=== PATIENT | male | born 1995 | race Caucasian/White ===

== ENCOUNTER 2018-01-30 10:45 | Emergency (ER) | payer SELFPAY ==
[2018-01-30 11:05] VITALS: TEMP 97.8; O2SAT 98
--- NOTE | 2018-01-30 11:18 | ED.PDOC ---
History of Present Illness - General Chief Complaint: Head Injury Stated Complaint: crowbar to left forehead Time Seen by Provider: 01/30/18 11:05 Source: patient, family Exam Limitations: no limitations - History of Present Illness Initial Comments: PT PRESENTS AFTER ACCIDENTALLY HITTING HIMSELF IN THE HEAD WITH A CROWBAR. PT DENIES LOC, NAUSEA OR VOMITING. PT REPORTS HEADACHE LOCALIZED TO THE AREA OF TRAUMA. SIGNIFICANT OTHER NOTICED THAT PATIENT HAD UNEQUAL PUPILS AND STATES HIS SPEECH WAS SLOWED WHEN HE FIRST ARRIVED HOME. Occurred: this morning Severity: moderate Head Injury Location: frontal Method of Injury: direct blow Loss of Consciousness: no loss of consciousness Associated Symptoms: headaches Allergies/Adverse Reactions: Allergies NO KNOWN ALLERGY Allergy (Verified 01/30/18 11:07) Home Medications: Ambulatory Orders Ibuprofen 800 mg PO Q8HR PRN #30 tab 01/30/18 Review of Systems - Review of Systems Constitutional: Denies: chills, fever EENTM: Denies: blurred vision, double vision Respiratory: Denies: cough, short of breath Cardiology: Denies: palpitations, syncope Gastrointestinal/Abdominal: Denies: diarrhea, nausea, vomiting Genitourinary: Denies: dysuria, frequency Musculoskeletal: Denies: joint pain, joint swelling Skin: Denies: dryness, lesions Neurological: States: headache. Denies: numbness, paresthesia Endocrine: States: no symptoms reported Hematologic/Lymphatic: States: no symptoms reported Past Medical History (General) - Patient Medical History Hx Asthma: Yes Hx of COPD: No Hx Cardiac Disorders: No Hx Congestive Heart Failure: No Hx Hypertension: No Surgical History: other - Social History Hx Tobacco Use: No - marijuanna smoker Family Medical History - Family History Mother Family History: No Known Physical Exam - Physical Exam General Appearance: Alert, No apparent distress, Well Developed, Well Hydrated Head Injury: ecchymosis - LOCATED OVER THE LEFT BROW, swelling - MILD, tenderness Eye Exam: bilateral normal ENT Exam: hearing grossly normal, no evidence of ENT injury Neck Exam: non-tender, full range of motion, normal alignment, normal inspection Back Exam: normal inspection, no vertebral tenderness Mental Status: alert, oriented x [address] Exam: normal hearing, normal speech, PERRL Motor/Sensory: no motor deficit, no sensory deficit Skin Exam: normal color, warm/dry - [place] Coma Score Best Eye Response (Klaus): (4) open spontaneously Best Verbal Response ([place]): (5) oriented Best Motor Response ([place]): (6) obeys commands [place] Total: 15 Progress - EKG/XRAY/CT CT Ordered: Yes - NORMAL HEAD AND CSPINE CT Departure - Departure Clinical Impression: Concussion without loss of consciousness, Hematoma Time of Disposition: 11:49 Disposition: Discharge to Home or Self Care Condition: Good Departure Forms: ED Discharge - Pt. Copy, Patient Portal Self Enrollment Instructions: DI for Concussion, DI for Closed Head Injury Diet: resume usual diet Referrals: [facility] [Provider Group] - 1-5 Days Prescriptions: Ibuprofen 800 mg PO Q8HR PRN #30 tab PRN Reason: Pain Home Medications: Ambulatory Orders Ibuprofen 800 mg PO Q8HR PRN #30 tab 01/30/18
--- NOTE | 2018-01-30 11:33 | CT ---
EXAM DESCRIPTION: Cervical Spine: Computed Tomography. CLINICAL HISTORY: HEAD INJURY . Trauma. COMPARISON: CT head noncontrast on the same visit. TECHNIQUE: Spiral, axial 2.5 mm scans through the cervical spine without contrast. Coronal and sagittal 2.0 mm Reconstructions. Total Exam DLP: 397.58 mGy-cm. This exam was performed according to our departmental dose-optimization program which includes automated exposure control, adjustment of the mA and/or kV according to patient size and/or use of iterative reconstruction technique; to reduce radiation dose to as low as reasonably achievable (ALARA). FINDINGS: Atlantoaxial joint is intact with no evidence of fracture. Atlantooccipital facets and the C1-2 facets appear anatomic with no bony abnormality. The spine is straightened. Disc spaces are maintained. No canal or neural foraminal stenosis. No vertebral body compression type fractures. No spondylolisthesis. Posterior elements are intact with no fractures. Facets are normal with no perching or locking. No abnormal radiodense objects in the soft tissues neural foramina are moderate canal. IMPRESSION: 1. No vertebral body fractures or posterior element fractures. Lack of lordosis may be due to muscle spasm. Otherwise anatomic alignment. Canal and neural foramina are patent. Facets are negative. Electronically signed by: Ulysses Mark MD 01/30/2018 11:31 AM CDT
--- NOTE | 2018-01-30 11:39 | CT ---
EXAM DESCRIPTION: Head: Computed Tomography. CLINICAL HISTORY: HEAD INJURY COMPARISON: CT scan of the cervical spine without contrast. TECHNIQUE: Non-helical axial scans through the skull and brain, at 2.5 mm intervals, non-contrast. Coronal and sagittal 2.0 mm reconstructions. Total Exam DLP: 752.48 mGy-cm. This exam was performed according to our departmental dose-optimization program which includes automated exposure control, adjustment of the mA and/or kV according to patient size and/or use of iterative reconstruction technique; to reduce radiation dose to as low as reasonably achievable (ALARA). FINDINGS: No hemorrhage, no mass-effect, and no midline shift. Normal french-white matter differentiation. No abnormal radiodense material in the brain parenchyma. Vascular calcifications not present; physiologic calcifications in the pineal gland and choroid plexus. No effacement or displacement of the ventricles, CSF spaces, or subdural spaces. No extra axial fluid collection or hemorrhage. No gross abnormalities of the bony calvarium. Included paranasal sinuses and mastoid air cells are well - aerated. Underdeveloped right frontal sinus cavities.. IMPRESSION: 1. No hemorrhage, no mass effect, no midline shift. Normal CT scan of the head without IV contrast. 2. CT scans are insensitive for detecting small CVAs in the first 24 hours after onset. Evaluation of the brain stem is also limited. If symptoms persist, consider MRI scan of the brain with diffusion imaging. Electronically signed by: Ulysses Mark MD 01/30/2018 11:37 AM CDT
[2018-01-30] MEDS ORDERED: IBUPROFEN 200 MG TAB PO ONE (11:50)
[2018-01-30 12:14] VITALS: BP 105/64
== END 2018-01-30 12:14 | disposition home or self-care (01) ==
LOC: ER 10:45
DX: S06.0X0A Concussion without loss of consciousness, initial encounter (principal); S00.83XA Contusion of other part of head, initial encounter; W22.8XXA Striking against or struck by other objects, initial encounter; Y93.9 Activity, unspecified; Y92.9 Unspecified place or not applicable

== ENCOUNTER 2018-12-25 17:10 | Emergency (ER) | payer SELFPAY ==
--- NOTE | 2018-12-25 18:26 | RAD ---
EXAM DESCRIPTION: Fingers,Right, 3 views CLINICAL HISTORY: 23 years Male, r index finger in door, cut over PIP COMPARISON: None. FINDINGS: No fracture or dislocation. Second digit prominent soft tissues. Electronically signed by: Noé Miller MD 12/25/2018 6:22 PM [facility]
[2018-12-25] MEDS ORDERED: LIDOCAINE 1% 10 ML VIAL INJ ONE (18:58)
[2018-12-25] MEDS ORDERED: SULFA/TRIMETH 800/160 (DS) TAB 1 EA TAB PO ONE (19:14)
[2018-12-25] MEDS ORDERED: TETANUS,DIPHTHERIA,PERTUSSIS 1 EA SYG IM ONE (19:14)
--- NOTE | 2018-12-25 19:17 | ED.PDOC ---
History of Present Illness - General Chief Complaint: Laceration Stated Complaint: R index finger laceration Time Seen by Provider: 12/25/18 17:51 Source: patient Exam Limitations: no limitations - History of Present Illness Initial Comments: the patient is a 23-year-old male presenting to the emergency room after having slammed his right index finger in a car door. He has a three-quarter inch laceration over the dorsal aspect of the proximal interphalangeal joint. Sensation and movement as well as blood supply appeared to be preserved. No other injuries. This happened just prior to arrival. The wound is not clean. Risks and benefits of repair were explained to patient agrees to proceed. Wound is clean with hydrogen peroxide and irrigated with 250 cc of sterile saline. Lidocaine without epinephrine 5 cc were used for local anesthetic. 6 simple sutures of 3-0 Ethilon were used to reapproximate. Band-Aid and triple antibiotic ointment as well as splint were placed. Patient tolerated this well. Estimated blood loss less than 3 cc. Timing/Duration: momentarily Severity: moderate Improving Factors: nothing Worsening Factors: nothing Associated Symptoms: denies symptoms Allergies/Adverse Reactions: Allergies NO KNOWN ALLERGY Allergy (Verified 01/30/18 11:07) Home Medications: Ambulatory Orders Albuterol Inhaler [Ventolin Hfa Inhaler] 2 puff INH Q4H PRN 12/25/18 Sulfa/Trimeth 800/160 (Ds) Tab [Bactrim DS Tab] 1 ea PO BID #10 tab 12/25/18 Review of Systems - Review of Systems Constitutional: States: no symptoms reported EENTM: States: no symptoms reported Respiratory: States: no symptoms reported Cardiology: States: no symptoms reported Gastrointestinal/Abdominal: States: no symptoms reported Genitourinary: States: no symptoms reported Musculoskeletal: States: see HPI Skin: States: see HPI Neurological: States: no symptoms reported Endocrine: States: no symptoms reported All other Systems: No Change from Baseline Past Medical History (General) - Patient Medical History Hx Stroke: No Hx Asthma: Yes Hx of COPD: No Hx Cardiac Disorders: No Hx Congestive Heart Failure: No Hx Hypertension: No Hx Diabetes: No - Vaccination History Hx Influenza Vaccination: No Hx Pneumococcal Vaccination: No - Social History Hx Tobacco Use: No Hx Alcohol Use: No Hx Substance Use: Yes - Marijuana Family Medical History - Family History Mother Family History: No Known Living Status: Hx Family Cancer: Yes - Ovarian w/METs, gliobastoma Physical Exam - Physical Exam General Appearance: Alert, Comfortable, No apparent distress Eye Exam: bilateral normal Ears, Nose, Throat: hearing grossly normal Neck: full range of motion Respiratory: no respiratory distress, no accessory muscle use Cardiovascular/Chest: normal peripheral pulses, no edema Peripheral Pulses: radial,right: 2+, radial,left: 2+ Rectal Exam: deferred Extremity: normal range of motion, no pedal edema, no calf tenderness, normal capillary refill, other - see history of present illness 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 X-ray shows no evidence of fracture or dislocation. He appears to be neurovascularly intact and the joint appears to be preserved. Mechanical function appears to be preserved. 6 simple sutures of 3-0 Ethilon were used for reapproximation. He was given a splint to use to keep from bending the joint. Sutures need to come out and 12 days to 14 days. Monitor for any evidence of infection. The patient was given a tetanus shot and a dose of Bactrim here. He'll be placed on Bactrim twice daily for 5 days. ER warnings were given. Departure - Departure Clinical Impression: Accidental laceration ICD-10 Supporting Text: index finger laceration initial visit Disposition: Discharge to Home or Self Care Condition: Fair Departure Forms: ED Discharge - Pt. Copy, Patient Portal Self Enrollment Instructions: DI for Laceration Repair, How to Care for a Laceration After Repair, DI for Laceration Repair -- Finger Diet: regular diet Activity: no pushing/pulling with affected limb Prescriptions: Sulfa/Trimeth 800/160 (Ds) Tab [Bactrim DS Tab] 1 ea PO BID #10 tab Home Medications: Ambulatory Orders Albuterol Inhaler [Ventolin Hfa Inhaler] 2 puff INH Q4H PRN 12/25/18 Sulfa/Trimeth 800/160 (Ds) Tab [Bactrim DS Tab] 1 ea PO BID #10 tab 12/25/18 Additional Instructions: the patient a 23-year-old male presenting to emergency room with a laceration over the proximal interphalangeal joint of the index finger of the right hand after closing it in a door. X-ray shows no evidence of fracture or dislocation. He appears to be neurovascularly intact and the joint appears to be preserved. Mechanical function appears to be preserved. 6 simple sutures of 3-0 Ethilon were used for reapproximation. He was given a splint to use to keep from bending the joint. Sutures need to come out and 12 days to 14 days. Monitor for any evidence of infection. The patient was given a tetanus shot and a dose of Bactrim here. He'll be placed on Bactrim twice daily for 5 days. ER warnings were given.
[2018-12-25 20:01] VITALS: BP 116/92; O2SAT 98
== END 2018-12-25 19:40 | disposition home or self-care (01) ==
LOC: ER 17:10
DX: S61.210A Laceration without foreign body of right index finger without damage to nail, initial encounter (principal); J45.909 Unspecified asthma, uncomplicated; W23.0XXA Caught, crushed, jammed, or pinched between moving objects, initial encounter; Y92.810 Car as the place of occurrence of the external cause

== ENCOUNTER 2019-01-14 09:40 | Emergency (ER) | payer SELFPAY ==
[2019-01-14] MEDS ORDERED: LACTATED RINGERS 1,000 ML IVS ONE (12:04)
[2019-01-14] MEDS ORDERED: METOCLOPRAMIDE HCL INJ 10 MG/2 ML VIAL IV ONE (12:04)
[2019-01-14] MEDS ORDERED: PANTOPRAZOLE INJECTION 80 MG in SODIUM CHLORIDE 0.9% 100ML 80 ML IVPB ONE (12:04)
[2019-01-14] MEDS ORDERED: SUCRALFATE 1 GM/10 ML 1 GM UD PO ONE (12:04)
--- NOTE | 2019-01-14 12:04 | ED.PDOC ---
History of Present Illness - General Chief Complaint: GI Problem Stated Complaint: pt states N/V every morning for a month Time Seen by Provider: 01/14/19 11:57 Source: patient Exam Limitations: no limitations - History of Present Illness Initial Comments: Abhinav Gandhi 23 y/o male stated that he had nausea /vomiting especially in am for the last one month denies fever ,weight loss, diarrhea,no loss of appetite,no chronic abdominal pain. Timing/Duration: other - one month Severity: moderate Improving Factors: nothing Worsening Factors: other - fasting Associated Symptoms: denies symptoms Allergies/Adverse Reactions: Allergies NO KNOWN ALLERGY Allergy (Verified 01/14/19 10:47) Home Medications: Ambulatory Orders Albuterol Inhaler [Ventolin Hfa Inhaler] 2 puff INH Q4H PRN 12/25/18 Metoclopramide Tab [Reglan Tab] 5 mg PO BID #20 tab 01/14/19 Ranitidine HCl 300 mg PO BEDTIME 90 Days #60 tab 01/14/19 Sucralfate Tab [Carafate Tab] 1 gm PO ACHS #30 tablet 01/14/19 Review of Systems - Review of Systems Constitutional: States: no symptoms reported EENTM: States: no symptoms reported Respiratory: States: no symptoms reported Cardiology: States: no symptoms reported Gastrointestinal/Abdominal: States: see HPI Genitourinary: States: no symptoms reported Musculoskeletal: States: no symptoms reported All other Systems: Reviewed and Negative, No Change from Baseline Past Medical History (General) - Patient Medical History Hx Stroke: No Hx Asthma: Yes Hx of COPD: No Hx Cardiac Disorders: No Hx Congestive Heart Failure: No Hx Hypertension: No Hx Diabetes: No Surgical History: other - thoracostomy - Vaccination History Hx Tetanus, Diphtheria Vaccination: Yes Hx Influenza Vaccination: No Hx Pneumococcal Vaccination: No - Social History Hx Tobacco Use: No Hx Alcohol Use: Yes Hx Substance Use: Yes - Marijauna Hx Depression: No Family Medical History - Family History Mother Family History: No Known Living Status: Hx Family Cancer: Yes - Ovarian w/METs, gliobastoma Physical Exam - Physical Exam General Appearance: Alert, Comfortable, No apparent distress Eye Exam: bilateral normal Ears, Nose, Throat: hearing grossly normal, normal ENT inspection, normal pharynx Neck: non-tender, full range of motion, supple Respiratory: chest non-tender, lungs clear, normal breath sounds Cardiovascular/Chest: normal peripheral pulses, regular rate, rhythm, no murmur Peripheral Pulses: radial,right: 2+, radial,left: 2+ Gastrointestinal/Abdominal: normal bowel sounds, non tender, soft, no organo megaly Back Exam: normal inspection, no CVA tenderness, no vertebral tenderness Neurologic: alert, oriented x 3 Skin Exam: normal color, warm/dry Progress - Progress Progress: 01/14/19 13:07 Vital Signs - 8 hr 01/14/19 01/14/19 01/14/19 10:36 11:00 12:00 Temperature 97.7 F Pulse Rate [ 64 69 89 Right Radial] Respiratory 16 16 16 Rate Blood Pressure 116/72 116/78 [Left Arm] O2 Sat by Pulse 97 97 94 L Oximetry 01/14/19 13:00 Temperature 98.2 F Pulse Rate [ 88 Right Radial] Respiratory 16 Rate Blood Pressure 130/81 [Left Arm] O2 Sat by Pulse 98 Oximetry - Results/Orders Results/Orders: 01/14/19 13:02 URINALYSIS Stat Laboratory Results - last 24 hr 01/14/19 12:16 WBC 10.1 RBC 5.20 Hgb 16.3 Hct 48.0 MCV 92.3 MCH 31.3 H MCHC 33.9 RDW 13.4 Plt Count 245 MPV 7.7 Absolute Neuts (auto) 7.20 H Absolute Lymphs (auto) 2.00 Absolute Monos (auto) 0.80 Absolute Eos (auto) 0.10 Absolute Basos (auto) 0.10 Neutrophils % 71.4 Lymphocytes % 19.5 L Monocytes % 7.6 Eosinophils % 0.8 L Basophils % 0.7 PT 10.3 INR 1.03 PTT (SP) 26.2 Sodium 136 Potassium 4.2 Chloride 104 Carbon Dioxide 23 Anion Gap 13.2 BUN 16 Creatinine 0.78 BUN/Creatinine Ratio 20.5 H Random Glucose 99 Serum Osmolality 273.2 L Calcium 9.3 Magnesium 2.0 Total Bilirubin 0.9 Direct Bilirubin 0.1 Indirect Bilirubin 0.8 AST 25 ALT 25 Alkaline Phosphatase 83 Creatine Kinase 269 H* CK-MB (CK-2) 2.8 CK-MB (CK-2) % Not Reportable Troponin I < 0.02 Serum Total Protein 7.4 Albumin 4.5 Discuss all test result with patien - EKG/XRAY/CT Xray Comments: GB-sono-no acute abnormalities Departure - Departure Clinical Impression: Gastritis and duodenitis Nausea & vomiting Qualifiers: Vomiting type: unspecified Vomiting Intractability: non-intractable Qualified Code(s): R11.2 - Nausea with vomiting, unspecified Time of Disposition: 13:10 Disposition: Discharge to Home or Self Care Condition: Good Departure Forms: ED Discharge - Pt. Copy, Patient Portal Self Enrollment Instructions: Gastritis, [place] Diet, Gastritis (DC), Ulcer and Gastritis Diet Prescriptions: Metoclopramide Tab [Reglan Tab] 5 mg PO BID #20 tab Ranitidine HCl 300 mg PO BEDTIME 90 Days #60 tab Sucralfate Tab [Carafate Tab] 1 gm PO ACHS #30 tablet Home Medications: Ambulatory Orders Albuterol Inhaler [Ventolin Hfa Inhaler] 2 puff INH Q4H PRN 12/25/18 Metoclopramide Tab [Reglan Tab] 5 mg PO BID #20 tab 01/14/19 Ranitidine HCl 300 mg PO BEDTIME 90 Days #60 tab 01/14/19 Sucralfate Tab [Carafate Tab] 1 gm PO ACHS #30 tablet 01/14/19 Additional Instructions: Need to sign up with primary Md for referral to GI specialist [facility]/[phone]
[2019-01-14] MEDS ORDERED: PANTOPRAZOLE SODIUM IV 40 MG VIAL ONE (12:16)
[2019-01-14] MEDS ORDERED: SODIUM CHLORIDE 0.9% 100ML 100 ML IVPB ONE (12:17)
--- NOTE | 2019-01-14 12:47 | US ---
EXAM DESCRIPTION: Abdomen,Limited: ULTRASOUND. CLINICAL HISTORY: N/V COMPARISON: None. TECHNIQUE: Transabdominal scannin-dimensional and Doppler modes. FINDINGS: Gallbladder: normal size, shape, echogenicity; no intraluminal stones or sludge. No fluid around the gallbladder. No wall thickening. 1.9 mm. Non-tender with transducer pressure. Common bile duct: caliber 3.5 mm within normal limits. Liver: normal echogenicity; contour liver capsule smooth where seen. No fluid around the liver. Intrahepatic biliary ducts normal caliber. Doppler hepatopedal flow and normal caliber portal vein.. Long axis right lobe 14.4 cm. Pancreas: normal size and echogenicity. Duct not seen. Proximal abdominal aorta: Not measured.. IVC: visualized and normal caliber. Right kidney: long axis measures 10.1 cm. Normal Echogenicity. Normal cortical thickness. No hydronephrosis IMPRESSION: Unremarkable ultrasound of the right upper quadrant of the abdomen. No free fluid. Nontender. Electronically signed by: Ulysses Mark MD 01/14/2019 12:43 PM CDT
[2019-01-14 13:03] VITALS: O2SAT 98
[2019-01-14 13:55] VITALS: BP 125/89; TEMP 97.4
== END 2019-01-14 13:00 | disposition home or self-care (01) ==
LOC: ER 09:40
DX: K29.70 Gastritis, unspecified, without bleeding (principal); K29.80 Duodenitis without bleeding; J45.909 Unspecified asthma, uncomplicated; Z79.899 Other long term (current) drug therapy
CPT/HCPCS: 36415; 76775; 80048; 80076; 81001; 82550; 82553; 84484; 85025; 85610; 85730; J2765; J7050; J7120